=== PATIENT | male | born 1985 | race Caucasian/White ===

== ENCOUNTER 2022-11-25 12:14 | Emergency (ER) | payer MEDICAID, SELFPAY ==
[2022-11-25] VITALS (11 sets, daily range): BP systolic 133–137; BP diastolic 95–98; PULSE 69–103; RESP 16–18; TEMP 36.3–36.7; O2SAT 99–100; BMI 26.4
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
[2022-11-25 13:38] LABS: Amphetamine Urine VISTA NEGATIVE (<1000 ng/mL); Barbiturate Urine VISTA NEGATIVE (< 200 ng/mL); Benzodiazepine Urine VISTA POSITIVE (< 200 ng/mL); Cocaine Urine VISTA NEGATIVE (< 300 ng/mL); Ecstacy Urine VISTA NEGATIVE (< 500 ng/mL); Methadone Urine VISTA NEGATIVE (< 300 ng/mL); PCP Urine VISTA NEGATIVE (< 25 ng/mL); THC Urine VISTA NEGATIVE (< 50 ng/mL); Vista UDS pH Range 6
--- NOTE | 2022-11-25 14:06 | ED.RN ---
PT MOTHER CALLED WITH CONCERN FOR SON, REQUESTS TO SPEAK WITH NURSING PROFESSOR. PT MOM NAME IS JUSTIN AND PHONE NUMBER [phone]. GÓMEZ NURSING PROFESSOR AT BEDSIDE WITH PT. WILL INFORM WHEN SHE IS DONE WITH PT EVALUATION.
[2022-11-25 14:38] LABS: Absolute Lymphocyte Count 3.16 X10^3/uL (0.83-4.51); Absolute Neutrophil Count 7.6 X10^3/uL (2.0-7.7); Basophil# 0.08 X10^3/uL; Basophil% 0.7 % (0-1); Eosinophil# 0.22 X10^3/uL; Eosinophils% 1.8 % (0-5); Hematocrit 47.3 % (40-54); Hemoglobin 15.7 g/dL (13.0-16.5); Lymphocyte # 3.16 X10^3/ul (0.83-4.51); Lymphocyte % 26.4 % (19-41); Mean Corp Hgb Conc 33.2 g/dL (32-36); Mean Corpuscular Hgb 29.8 pg (27.0-32.0); Mean Corpuscular Volume 89.8 fL (80-94); Mean Platelet Vol. 10.4 fl (6.2-12.0); Monocyte% 7.5 % (0-10); NRBC Flagged by Analyzer 0 % (0-5); Neutrophil # 7.56 X10^3/uL (2.7-7.7); Neutrophil % 63.3 % (47-70); Platelet Count 234 K/mm3 (150-450); Red Blood Count 5.27 M/mm3 (4.6-6.2)
[2022-11-25 14:44] LABS: Alcohol, Blood (Medical)-Serum < 3.0 mg/dL
[2022-11-25 14:46] LABS: Anion Gap 7 (5-15); BUN 11 mg/dL (7-18); Calcium,Total 9.6 mg/dL (8.5-10.1); Chloride 105 mmol/L (98-107); Creatinine, Serum 0.85 mg/dL (0.70-1.30); EST Glomerular Filtration Rate 107 mL/min (>60); Est Glom Filt Rate - Afr Amer 130 mL/min (>60); Estimated Creatinine Clearance 129.33 ml/min; Glucose 108 mg/dL (74-106); Potassium 3.3 mmol/L (3.5-5.1); Sodium Level 139 mmol/L (136-145)
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
--- NOTE | 2022-11-25 21:22 | CM.ED ---
Addendum entered by Shanthi Jones 11/25/22 22:35: ANI met with patient to inform him of his acceptance to [facility]. Patient was laying in bed sleeping but opened his eyes while SW was talking. Patient said okay and closed his eyes again. SW asked patient if he had any questions, patient said no. SW explained his transportation was scheduled for 7am. Plan: [facility] Shanthi GARCIA, NEWSPAPER DELIVERER Original Note: ANI Note SW met with patient and reviewed recommendation for inpatient psych placement due to current safety concerns. Patient asked this worker of the reason for placement, SW reiterated there was a safety concern as patient wasn't making good choices and would benefit from further evaluation at [facility]. Patient was quite and did not respond. SW asked patient if he had any other questions, patient did not respond. SW informed patient she would keep him updated regarding placement. ANI contacted [facility] to inquire about bed availability and provided brief information regarding patient and current needs. Admissions staff stated they had availability and requested SW send fax to their facility. ANI faxed referral to [facility]. [facility] staff contacted SW to accept patient. Patient was accepted at [facility] for [facility] by Dr. Suazo, [facility], N2N [id number]. Admissions staff requested a pink slip to faxed to them addressed to [facility] and to inform them of patient's ETA. ANI updated MD and cement loader of acceptance to [facility]. strip picker to coordinate transportation; set up for 7am. ANI faxed copy of pink slip to [facility]. ANI attempted to meet with patient, however, patient is currently sleeping. ANI will follow up to allow patient time to rest as he reported not sleeping well recently. ANI met with patient's parents in the waiting room to provide them with update. ANI explained patient has been pink slipped and will be transferred from this hospital to [facility]. Patient's mother inquired about her ability to be informed when patient is discharged, ANI explained that would be up to patient as he is an adult and will need to give permission for facility to contact patient's mother. Patient's mother and father voiced understanding and left ED. Plan: [facility] Shanthi GARCIA, NEWSPAPER DELIVERER
[2022-11-26] VITALS (7 sets, daily range): BP systolic 127; BP diastolic 84; PULSE 73; RESP 14–18; O2SAT 97
[2022-11-26] MEDS: Acetaminophen 325 MG Tablet 650 MG PO (01:55)
[2022-11-26] MEDS: ALPRAZolam 0.5 MG Tablet PO ×2 (01:56→09:22)
[2022-11-26] MEDS: buprenorphine HCL 8 MG TAB.SUBL SL ×2 (02:16→09:00)
--- NOTE | 2022-11-26 06:14 | ED.RN ---
report called to [facility] RN. given an updated ETA.
== END 2022-11-26 09:36 ==
PROVIDERS: Emergency Provider Emergency Medicine; Visit Provider Emergency Medicine
DX: Z04.6 Encounter for general psychiatric examination, requested by authority (principal); J45.909 Unspecified asthma, uncomplicated; E78.00 Pure hypercholesterolemia, unspecified; F17.210 Nicotine dependence, cigarettes, uncomplicated; F41.9 Anxiety disorder, unspecified; Z91.14 Patient's other noncompliance with medication regimen; Z79.899 Other long term (current) drug therapy
CPT/HCPCS: 80048; 80307; 82077; 85025; 87811; 99285